=== PATIENT | male | born 1965 | race Caucasian/White ===

== ENCOUNTER 2019-12-13 20:05 | Emergency (ER) | payer OTHER ==
[~2019-12-13] VITALS: Ht 172.7 cm; Wt 106.6 kg
[2019-12-13 20:17] VITALS: BP_SYST 139
[2019-12-13] MEDS ORDERED: KETOROLAC TROMETHAMINE 30 MG VIAL IVP ONE (20:30)
[2019-12-13] MEDS ORDERED: NACL 0.9% 1,000 ML IV ONE ×2 (20:30→21:45)
[2019-12-13] MEDS ORDERED: MORPHINE 4 MG/ML INJ. SYRINGE IVP ONE (21:45)
[2019-12-13 22:55] VITALS: BP_SYST 142
== END 2019-12-13 22:55 | disposition home or self-care (01) ==
LOC: SED 20:05
DX: R05 Cough (principal); R50.9 Fever, unspecified; Z88.0 Allergy status to penicillin
CPT/HCPCS: 71045; 86710; 96374; 96375; 99284; J1885; J2270; J7030; 36415